=== PATIENT | female | born 1990 | race Two or more races ===

== ENCOUNTER 2021-03-27 14:01 | Outpatient (CLI) | payer OTHER | END 2021-03-27 14:59 | disposition home or self-care (01) | LOC: LAB 14:01 | PROVIDERS: ATTEND Internal Medicine Endocrinology, Diabetes & Metabolism | DX: J06.9 Acute upper respiratory infection, unspecified (principal); Z20.822 Contact with and (suspected) exposure to COVID-19; Z03.818 Encounter for observation for suspected exposure to other biological agents ruled out ==